=== PATIENT | male | born 1935 | race Caucasian/White ===

== ENCOUNTER 2018-06-12 18:29 | Emergency (ER) | payer OTHER, MEDICAID ==
[~2018-06-12] VITALS: Ht 152.4 cm; Wt 79.8 kg
[2018-06-12 18:39] VITALS: Ht 152.4 cm; Wt 79.8 kg
[2018-06-12 19:42] VITALS: BP 149/80
== END 2018-06-12 19:57 | disposition home or self-care (01) ==
LOC: ED 18:29
DX: S60.562A Insect bite (nonvenomous) of left hand, initial encounter (principal); I10 Essential (primary) hypertension; E11.9 Type 2 diabetes mellitus without complications; W57.XXXA Bitten or stung by nonvenomous insect and other nonvenomous arthropods, initial encounter; Y93.89 Activity, other specified; Y92.89 Other specified places as the place of occurrence of the external cause; Y99.8 Other external cause status